=== PATIENT | female | born 1960 | race American Indian/Alaskan Native ===

== ENCOUNTER 2017-03-20 13:13 | Outpatient (CLI) | payer OTHER ==
[2017-03-20] MEDS ORDERED: PROVENTIL IH ONE (13:22)
== END 2017-03-20 13:14 | disposition home or self-care (01) ==
LOC: PF 13:13
PROVIDERS: ATTEND Internal Medicine
DX: J44.9 Chronic obstructive pulmonary disease, unspecified (principal)
CPT/HCPCS: 94060; 94640; 94729

== ENCOUNTER 2017-11-14 15:19 | Emergency (ER) | payer SELFPAY ==
[2017-11-14 16:57] LABS: Hematocrit 30.5 % (30.3-42.9); Mean Corpuscular HGB Conc 33 % (30-34); Mean Corpuscular Hemoglobin 27 pg (28-32); Mean Corpuscular Volume 81 fl (79-97); Platelet Count 260 K/mm3 (140-440); Red Blood Count 3.76 M/mm3 (3.65-5.03); Red Cell Distribution Width 15.9 % (13.2-15.2)
--- NOTE | 2017-11-14 18:25 | XRay Report ---
FINAL REPORT PROCEDURE: XR CHEST ROUTINE 2V TECHNIQUE: PA and lateral chest radiographs were obtained. CPT 81407 HISTORY: cough COMPARISON: No prior studies are available for comparison. FINDINGS: Heart: Normal. Mediastinum/Vessels: Normal. Lungs/Pleural space: No infiltrate, effusion, or pneumothorax is seen. Bony thorax: No acute osseous abnormality. Other: IMPRESSION: No pulmonary infiltrates are identified.
[2017-11-14 20:08] VITALS: BP 156/89
[2017-11-14] MEDS ORDERED: DUONEB *Not for PRN Use IH ONE (21:21)
--- NOTE | 2017-11-14 21:29 | Emergency Department Report ---
<YAO GR - Last Filed: 11/14/17 22:11> - General Chief Complaint: Upper Respiratory Infection Stated Complaint: SOB, HEADACHE, BODY ACHE Time Seen by Provider: 11/14/17 19:40 Source: patient Mode of arrival: Ambulatory Limitations: No Limitations - History of Present Illness Initial Comments: This is a 57-year-old female nontoxic, well nourished in appearance, no acute signs of distress presents to the ED with c/o of shortness of breathe, productive cough, body aches, rhinorrhea, and nasal congestion x 2 days. Patient stated that at times she develops tightness in the chest but denies any chest pain. Patient stated that chest tightness radiates to the back. Patient describes productive cough as yellow mucus production. Patient denies any recent travels, long car rides, or recent hospital stays. Patient denies calf pain or calf tenderness. Patient denies drooling or hoarseness. Denies any hemoptysis. Patient denies chest pain, fever, chills, nausea, vomiting, headache, stiff neck, numbness, tingling. Patient denies any allergies. PMH includes HTN and DM. MD Complaint: cough, rhinorrhea, nasal congestion, other (shortness of breathe) -: days(s) (2) Severity: mild Severity scale (0 -10): 8 Quality: aching Consistency: constant Improves With: nothing Worsens With: nothing Associated Symptoms: rhinorrhea, nasal congestion, cough, shortness of breath. denies: fever, chills, myalgias, diaphoresis, headache, sore throat, stiff neck , chest pain, abdominal pain, nausea, vomiting, diarrhea, dysuria, rash, confusion, right sweats, weight loss, epistaxis, hoarseness, ear pain Treatments Prior to Arrival: none - Related Data Previous Rx's Medication Instructions Recorded Last Taken Type Albuterol Sulfate [Proair 90 mcg IH Q4-6H PRN #1 dae 11/15/17 Unknown Rx Respiclick] Allergies Allergy/AdvReac Type Severity Reaction Status Date / Time No Known Allergies Allergy Unverified 03/20/17 13:13 ED Review of Systems ROS: Stated complaint: SOB, HEADACHE, BODY ACHE Other details as noted in HPI Constitutional: denies: chills, fever Eyes: denies: eye pain, eye discharge, vision change ENT: denies: ear pain, throat pain Respiratory: cough, shortness of breath. denies: wheezing Cardiovascular: denies: chest pain, palpitations Endocrine: no symptoms reported Gastrointestinal: denies: abdominal pain, nausea, diarrhea Genitourinary: denies: urgency, dysuria, discharge Musculoskeletal: denies: back pain, joint swelling, arthralgia Skin: denies: rash, lesions Neurological: denies: headache, weakness, paresthesias Psychiatric: denies: anxiety, depression Hematological/Lymphatic: denies: easy bleeding, easy bruising ED Past Medical Hx - Past Medical History Hx Hypertension: Yes Hx Diabetes: Yes - Surgical History Past Surgical History?: No - Social History Smoking Status: Never Smoker Substance Use Type: None - Medications Home Medications: Home Medications Medication Instructions Recorded Confirmed Last Taken Type Albuterol Sulfate [Proair 90 mcg IH Q4-6H PRN #1 [email or web address] 11/15/17 Unknown Rx Respiclick] ED Physical Exam - General Limitations: No Limitations General appearance: alert, in no apparent distress - Head Head exam: Present: atraumatic, normocephalic - Eye Eye exam: Present: normal appearance, PERRL, EOMI Pupils: Present: normal accommodation - ENT ENT exam: Present: normal exam, normal orophraynx, mucous membranes moist, TM's normal bilaterally, normal external ear exam - Neck Neck exam: Present: normal inspection, full ROM. Absent: tenderness, meningismus, lymphadenopathy, thyromegaly - Respiratory Respiratory exam: Present: normal lung sounds bilaterally. Absent: respiratory distress, wheezes, rales, rhonchi, stridor, chest wall tenderness, accessory muscle use, decreased breath sounds, prolonged expiratory - Cardiovascular Cardiovascular Exam: Present: regular rate, normal rhythm, normal heart sounds. Absent: irregular rhythm, systolic murmur, diastolic murmur, rubs, gallop - GI/Abdominal GI/Abdominal exam: Present: soft, normal bowel sounds. Absent: distended, tenderness, guarding, rebound, rigid, diminished bowel sounds - Rectal Rectal exam: Present: deferred - Extremities Exam Extremities exam: Present: normal inspection, full ROM, normal capillary refill. Absent: tenderness, pedal edema, joint swelling, calf tenderness - Back Exam Back exam: Present: normal inspection, full ROM. Absent: tenderness, CVA tenderness (R), CVA tenderness (L), muscle spasm, paraspinal tenderness, vertebral tenderness, rash noted - Neurological Exam Neurological exam: Present: alert, oriented X3, CN II-XII intact, normal gait, reflexes normal - Psychiatric Psychiatric exam: Present: normal affect, normal mood - Skin Skin exam: Present: warm, dry, intact, normal color. Absent: rash ED Course Vital Signs 11/14/17 11/14/17 11/15/17 16:04 20:04 01:36 Temperature 99.4 F 99.1 F Pulse Rate 105 H 92 H Pulse Rate [ 87 Anterior Bilateral Throughout] Respiratory 20 18 Rate Respiratory 18 Rate [Anterior Bilateral Throughout] Blood Pressure 157/81 156/89 O2 Sat by Pulse 97 98 Oximetry 11/15/17 02:00 Temperature Pulse Rate Pulse Rate [ 92 H Anterior Bilateral Throughout] Respiratory Rate Respiratory 18 Rate [Anterior Bilateral Throughout] Blood Pressure O2 Sat by Pulse Oximetry - Reevaluation(s) Reevaluation #1: 11/14/17 21:30 Patient is speaking in full sentences with no signs of distress noted. - Consultations Consultation #1: 11/14/17 21:56 Dr. Vital has been consulted about patient history, physical exam, and lab findings and agrees to the plan of care in the ED. Consultation #2: 11/14/17 22:11 Patient was discussed and signed out to KACIE Castillo. ED Medical Decision Making - Lab Data Result diagrams: 11/14/17 16:24 11/14/17 21:24 - Medical Decision Making This is a 57-year-old female that presents with upper resp infection. Patient is stable and was examined by me. Chest xray has been obtained and dictated by radiologist. Patient notified of x-ray results with no question or by the patient. Labs obtained and pending but there is significant elevation of D- dimmer. EKG obtained with normal sinus rhythm and no ST abnormality. Chest CT angio obtained and pending. Patient is put on 2L of oxygen and monitoring and evaluation advisor. Dr. Vital was consulted about patient. Patient has been signed out to KACIE Castillo. At time time of sign out, the patient does not seem toxic or ill in appearance. No acute signs of distress noted. Patient agrees to the ED plan of care. No further questions noted by the patient. This chart is dictated with using Dragon Dictation Program Critical care attestation.: If time is entered above; I have spent that time in minutes in the direct care of this critically ill patient, excluding procedure time. ED Disposition Clinical Impression: URI (upper respiratory infection) Qualifiers: URI type: acute nasopharyngitis (common cold) Qualified Code(s): J00 - Acute nasopharyngitis [common cold] Disposition: TO HOME OR SELFCARE Condition: Stable Instructions: Upper Respiratory Infection (ED), Cold Symptoms (ED) Additional Instructions: Follow up with [facility] in 24-72 hours. Return to ER if short of breath, chest pain, and uncontrolled fever. Prescriptions: Albuterol Sulfate [Proair Respiclick] 90 mcg IH Q4-6H PRN #1 [email or web address] PRN Reason: Shortness Of Breath Referrals: [facility] [Outside] - 3-5 Days [facility] [Outside] - 3-5 Days [facility] [Outside] - 3-5 Days Print Language: SLOVENIAN <ATIF STAFFORD - Last Filed: 11/15/17 02:59> ED Medical Decision Making - Lab Data Result diagrams: 11/14/17 16:24 11/14/17 21:24 - Radiology Data Radiology results: image reviewed Chest CTA IMPRESSION: Limited exam. No large embolus is seen within the main or right and left pulmonary arteries, however the more pulmonary distal arteries are not diagnostically evaluated due to suboptimal contrast enhancement. If there is significant concern for pulmonary embolus, consider repeat CT angiogram when clinically feasible or V/Q scan. VQ Scan of Lungs: IMPRESSION: Normal Examination - Medical Decision Making Consulted Dr. Vital about patient. Pulse Ox 94% after walking 100 feet, HR 112. Chest CTA IMPRESSION: Limited exam. No large embolus is seen within the main or right and left pulmonary arteries, however the more pulmonary distal arteries are not diagnostically evaluated due to suboptimal contrast enhancement. If there is significant concern for pulmonary embolus, consider repeat CT angiogram when clinically feasible or V/Q scan. VQ Scan of Lungs: IMPRESSION: Normal Examination. ABG normal. Discussed results with Dr. Vital and patient. Patient is stable and nontoxic appearing. Received atrovent and duoneb treatment in ER. Discharged home with albuterol inhaler. Referral to [facility] for f/u. Return to ER if SOB, chest pain, and uncontrolled fever. ED Disposition Is pt being admited?: No Does the pt Need Aspirin: No Time of Disposition: 02:58
[2017-11-14] MEDS ORDERED: MOTRIN PO ONE (21:35)
[2017-11-14 22:05] LABS: BUN/Creatinine Ratio 9; Blood Urea Nitrogen 6 mg/dL (7-17); Calcium 9.5 mg/dL (8.4-10.2); Hemolysis Index 5
[2017-11-14] MEDS ORDERED: NACL 0.9% 1000 ML 1,000 ML IV ONE (22:16)
--- NOTE | 2017-11-14 23:08 | Cat Scan Report ---
FINAL REPORT PROCEDURE: CT ANGIO CHEST TECHNIQUE: Computerized axial tomographic angiography of the chest and pulmonary arteries was performed after the IV injection of iodinated nonionic contrast. The image data was postprocessed using maximum intensity projection (MIP) and 2-dimensional multiplanar reformatted (MPR) techniques. The examination is specifically tailored to the evaluation of the pulmonary arteries per clinical request. HISTORY: Shortness of breath COMPARISON: Radiograph 11/14/2017 FINDINGS: Heart and pericardium: No pericardial effusion or thickening. Thoracic aorta: Normal. Pulmonary vasculature: There is limited evaluation of the pulmonary arteries due to suboptimal contrast enhancement. No large embolus is seen within the main or right and left pulmonary arteries. However more distal branches are not diagnostically evaluated. Lymph nodes: No enlarged thoracic lymph nodes. Lungs: Normal. Pleural space: No effusion, thickening, or pneumothorax. Musculoskeletal structures: Minimal multilevel disc space narrowing of the thoracic spine. Upper abdominal structures: There is a 4 millimeter nonobstructive calculus in the right kidney midpole. IMPRESSION: Limited exam. No large embolus is seen within the main or right and left pulmonary arteries, however the more pulmonary distal arteries are not diagnostically evaluated due to suboptimal contrast enhancement. If there is significant concern for pulmonary embolus, consider repeat CT angiogram when clinically feasible or V/Q scan.
[2017-11-15] MEDS ORDERED: ATROVENT IH ONE (00:50)
[2017-11-15] MEDS ORDERED: PROVENTIL IH ONE (00:50)
--- NOTE | 2017-11-15 01:32 | Nuclear Medicine Report ---
FINAL REPORT PROCEDURE: NM LUNG SCAN PERF/VENT TECHNIQUE: Five mCi Tc-99m MAA was injected IV for pulmonary perfusion imaging in multiple projections. Fifteen mCi Xenon 133 gas was inhaled for pulmonary ventilation imaging in multiple projections. Injection site: RIGHT antecubital fossa. CPT 67720 HISTORY: elevated dimer COMPARISON: CT chest 11/14/2017 FINDINGS: Perfusion: No defects . Ventilation: No defects . IMPRESSION: Normal Examination
== END 2017-11-15 03:30 | disposition home or self-care (01) ==
LOC: ED 15:19
DX: J06.9 Acute upper respiratory infection, unspecified (principal); J00 Acute nasopharyngitis [common cold]; I10 Essential (primary) hypertension; E11.9 Type 2 diabetes mellitus without complications
CPT/HCPCS: 36415; 71046; 71275; 78582; 80048; 82550; 82803; 84484; 85027; 85379; 93005; 93010; 94640; 96360; 96372; 99285; A9540; A9558; J2930; J7030; Q9967